=== PATIENT | male | born 1965 | race Asian ===

== ENCOUNTER 2023-07-12 21:32 | Outpatient (CLI) | payer SELFPAY | END 2023-07-12 21:33 | disposition critical access hospital (66) | LOC: EMS 21:32 | DX: R47.1 Dysarthria and anarthria (principal) | CPT/HCPCS: A0425; A0429 ==

== ENCOUNTER 2023-07-12 21:51 | Emergency (ER) | payer SELFPAY ==
--- NOTE | 2023-07-12 22:07 | ED Physician Documentation ---
PD HPI FOCAL NEURO - Stated complaint Stated Complaint: DIFF SPEAKING - History obtained from History obtained from: Patient, EMS - History of Present Illness Timing - duration: Minutes (30) Timing - details: Abrupt onset, Now resolved Severity of deficit: Severe Numbness: Hand (R hand) Associated symptoms: No: Headache, Nausea / vomiting, Seizure, Syncope, Fall, Head injury, Chest pain, Neck pain, Back pain, Fever Contributing factors: negative: Anticoagulated, Vascular dz, Atrial fibrillation, Prosthetic heart valve Baseline status: positive: A&OX3, ambulatory, indep - Additional information Additional information: Patient is a 57-year-old male who presents to the emergency department with 30 minutes of expressive aphasia today. Symptoms started around 930 tonight. Patient is speaking upon arrival to the emergency department. He just returned from the [facility] yesterday. Speaks Tagalog. His friend accompanied him to the emergency department. His friend states that they were drinking beers and smoking cigarettes in his garage today when he suddenly appeared "out of it" and had difficulty speaking. No seizure-like activity. No shaking. Nothing made it better or worse. Symptoms seem to have resolved now. Patient states that he takes no medications and has no medical history. Review of Systems Constitutional: denies: Fever Ears: denies: Ear pain Nose: denies: Rhinorrhea / runny nose, Congestion Throat: denies: Sore throat Cardiac: denies: Chest pain / pressure Respiratory: denies: Cough GI: denies: Nausea, Vomiting, Diarrhea : denies: Dysuria Skin: denies: Rash Musculoskeletal: denies: Neck pain, Back pain Neurologic: denies: Headache PD PAST MEDICAL HISTORY - Past Medical History Past Medical History: No - Past Surgical History Past Surgical History: No - Allergies Allergies/Adverse Reactions: Allergies Allergy/AdvReac Type Severity Reaction Status Date / Time No Known Drug Allergies Allergy Verified 07/12/23 22:03 - Living Situation Living Arrangement: reports: At home - Social History Does the pt smoke?: Yes Smoking Status: Current every day smoker Does the pt drink ETOH?: Yes ETOH Use: Beer Does the pt have substance abuse?: No - Family History Family history: reports: Non contributory PD ED PE NORMAL - Vitals Vital signs reviewed: Yes - General General: Alert and oriented X 3, No acute distress - HEENT HEENT: Atraumatic, PERRL, EOMI, Ears normal, Moist mucous membranes - Neck Neck: Supple, no meningeal sign - Cardiac Cardiac: RRR, Strong equal pulses - Respiratory Respiratory: No respiratory distress, Clear bilaterally - Abdomen Abdomen: Soft, Non tender, Non distended - Derm Derm: Warm and dry - Extremities Extremities: No edema, No calf tenderness / cord - Neuro Neuro: Alert and oriented X 3, pattern molder 2-12 intact, No motor deficit, No sensory deficit, Normal speech Eye Opening: Spontaneous Motor: Obeys Commands Verbal: Oriented GCS Score: 15 - Psych Psych: Normal mood, Normal affect NIHSS - Time Time: 22:06 - Level of Consciousness Level of consciousness: (0) Alert, Keenly responsive LOC Questions: (0) Answers both Q's correct LOC Commands: (0) Performs both correctly - Gaze Best Gaze: (0) Normal - Visual Visual: (0) No loss - Facial Palsy Facial Palsy: (0) Normal, symmetrical movement - Motor Arms (both separate) Motor Arm (right): (0) No drift Motor Arm (left): (0) No drift - Motor Legs (both separate) Motor Leg (right): (0) No drift Motor Leg (left): (0) No drift - Limb Ataxia Limb Ataxia: (0) Absent - Sensory Sensory: (0) Normal - Best Language Best Language: (0) No aphasia - Dysarthria Dysarthria: (0) Normal - Extinction and Inattention (formally neg Extinction and inattention: (0) No abnormality - Total Score/Results Total Score/Result: 0 Results - Vitals Vitals: Vital Signs - 24 hr 07/12/23 07/12/23 22:04 22:06 Temperature 36.5 C 36.5 C Heart Rate 83 83 Respiratory 16 16 Rate Blood Pressure 138/72 H 138/72 H O2 Saturation 97 97 Oxygen O2 Source Room air - Labs Labs: Laboratory Tests 07/12/23 07/12/23 07/12/23 22:14 22:14 22:14 WBC 8.3 RBC 4.59 L Hgb 14.5 Hct 43.9 MCV 95.6 H MCH 31.6 H MCHC 33.0 RDW 14.2 Plt Count 327 MPV 9.9 Neut # (Auto) 4.8 Lymph # (Auto) 2.7 [place] # (Auto) 0.4 Eos # (Auto) 0.3 Baso # (Auto) 0.1 Absolute Nucleated RBC 0.00 Nucleated RBC % 0.0 PT 11.3 INR 1.0 APTT 29.7 Sodium 140 Potassium 3.8 Chloride 106 Carbon Dioxide 29 Anion Gap 5.0 L BUN 15 Creatinine 0.9 Estimated GFR (MDRD) 87 L Glucose 120 H Calcium 9.4 Total Bilirubin 0.3 AST 18 ALT 12 Alkaline Phosphatase 80 Total Protein 7.8 Albumin 4.6 Globulin 3.2 Albumin/Globulin Ratio 1.4 Lipase 44 Ethyl Alcohol < 10.0 - Rads (name of study) head ct Relevant Findings:: Final report received, See rad report cta head/neck Relevant Findings:: Final report received, See rad report PD Medical Decision Making - ED course Complexity details: reviewed results, re-evaluated patient, considered differential, d/w patient ED course: Patient with what appears to likely be a TA IA. Sent for head CT and CT ang iogram of the head and neck. Patient is signed out to Dr. Harp, please see her note for further care of this patient. Patient was activated as a stroke upon arrival to the emergency department. EMS did not activate. There was difficulty obtaining IV access, therefore I did place an ultrasound-guided IV in his right AC.
[2023-07-12 22:20] LABS: BASOPHILS # (AUTO) 0.1 10^3/uL (0.0-0.1); BASOPHILS % (AUTO) 1.1 %; EOSINOPHILS # (AUTO) 0.3 10^3/uL (0.0-0.7); EOSINOPHILS % (AUTO) 3.4 %; HCT - HEMATOCRIT 43.9 % (42.0-52.0); HGB - HEMOGLOBIN 14.5 g/dL (14.0-18.0); LYMPHOCYTES # (AUTO) 2.7 10^3/uL (1.5-3.5); LYMPHOCYTES % (AUTO) 33.1 %; MEAN CORPUSCULAR HEMOGLOBIN 31.6 pg (27.0-31.0); MEAN CORPUSCULAR VOLUME 95.6 fL (80.0-94.0); MEAN PLATELET VOLUME 9.9 fL (7.4-11.4); MONOCYTES # (AUTO) 0.4 10^3/uL (0.0-1.0); MONOCYTES % (AUTO) 4.5 %; NEUTROPHILS # (AUTO) 4.8 10^3/uL (1.5-6.6); NEUTROPHILS % (AUTO) 57.5 %; PLT - PLATELET COUNT 327 10^3/uL (130-450); RED BLOOD COUNT 4.59 10^6/uL (4.70-6.10); RED CELL DISTRIBUTION WIDTH 14.2 % (12.0-15.0); WHITE BLOOD COUNT 8.3 x10^3/uL (4.8-10.8)
[2023-07-12 22:30] LABS: PARTIAL THROMBOPLASTIN TIME 29.7 secs (24.9-33.3)
[2023-07-12 22:34] LABS: PT - PROTHROMBIN TIME 11.3 secs (9.9-12.6)
[2023-07-12 22:47] LABS: ALBUMIN 4.6 g/dL (3.2-5.5); ALBUMIN/GLOBULIN RATIO 1.4 (1.0-2.2); ALKALINE PHOSPHATASE 80 IU/L (42-121); ALT ALANINE AMINOTRANSFERASE 12 IU/L (10-60); AST ASPARTATE AMINOTRANSFERASE 18 IU/L (10-42); BILIRUBIN,TOTAL 0.3 mg/dL (0.2-1.0); BUN - BLOOD UREA NITROGEN 15 mg/dL (6-20); CALCIUM 9.4 mg/dL (8.5-10.3); CARBON DIOXIDE - CO2 29 mmol/L (21-32); CHLORIDE 106 mmol/L (101-111); CREATININE 0.9 mg/dL (0.6-1.3); ETOH - ETHANOL < 10.0 mg/dL; GFR - MDRD 87 (>89); GLUCOSE 120 mg/dL (74-104); LIPASE 44 U/L (11-82); POTASSIUM 3.8 mmol/L (3.5-4.5); SODIUM 140 mmol/L (135-145); TOTAL PROTEIN 7.8 g/dL (6.4-8.9)
[2023-07-12] MEDS ORDERED: iohexoL-300 100 ML VIAL IVP ONE (23:37)
--- NOTE | 2023-07-12 23:56 | CT Report ---
PROCEDURE: CT Angio Head/Neck INDICATIONS: expressive aphasia TECHNIQUE: Axial 1 mm thin sections were obtained during arterial phase of contrast enhancement with subsequent coronal and sagittal reformatted imaging from the thoracic inlet to the skull vertex. COMPARISON: Noncontrast head CT same day. FINDINGS: The aortic arch and brachiocephalic vessels show no evidence of dissection or aneurysm. Arterial enha ncement extending through the common carotid arteries is symmetric and at the carotid bifurcation no appreciable stenosis is seen. Contrast enhancement extends cephalad into the skull base with symmetri c enhancement of the anterior cerebral arteries, middle cerebral arteries and the posterior circulati on. Vertebral basilar arterial enhancement also is normal and symmetric. There is no evidence of intr acranial embolic disease, aneurysm or appreciable stenosis. Through the brain parenchyma no area of ischemic injury is found nor is there evidence of intracrania l hemorrhage or mass. IMPRESSION: Normal examination, source of expressive aphasia is not identified. Reviewed by: Matthew Gray MD on 07/12/2023 11:54 PM PDT Approved by: Matthew Gray MD on 07/12/2023 11:54 PM PDT Station ID: [id number]
--- NOTE | 2023-07-12 23:58 | CT Report ---
PROCEDURE: Head W/O Stroke Protocol INDICATIONS: expressive aphasia TECHNIQUE: Noncontrast 4.5 mm thick angled axial sections acquired from the foramen magnum to the vertex, with c oronal reformats. For radiation dose reduction, the following was used: automated exposure control, adjustment of mA and/or kV according to patient size. COMPARISON: None. FINDINGS: Image quality: Excellent. CSF spaces: Basal cisterns are patent. No extra-axial fluid collections. Ventricles are normal in size and shape. Brain: No midline shift. No intracranial masses or hemorrhage. [place]-white matter interface is norm al. Skull and face: Calvarium and visualized facial bones are intact, without suspicious lesions. Sinuses: Visualized sinuses and mastoids are clear except for minimal mucosal thickening that appear s chronic, involving the inferior aspect of the left maxillary sinus. IMPRESSION: Normal examination, etiology of expressive aphasia is not seen. Minimal mucosal thickening incidentally noted within the left maxillary sinus inferiorly, without air -fluid level. This study fulfills neurological imaging criteria for inclusion or exclusion of acute stroke therapie s based on available published neurological imaging guidelines. Reviewed by: Matthew Gray MD on 07/12/2023 11:56 PM PDT Approved by: Matthew Gray MD on 07/12/2023 11:56 PM PDT Station ID: [id number]
--- NOTE | 2023-07-13 00:13 | ED Physician Documentation ---
ED Addendum - Addendum Addendum: 07/13/23 00:[address] imaging reviewed. Patient is back to normal, confirmed by friend at bedside who speaks Tagalog and Spanish. NIH 0, no deficits noted on repeat physical exam. Possible TIA. Will discharge on aspirin and Plavix. Emphasis on PCP follow-up advised with patient via electroneurodiagnostic technician service at bedside.
[2023-07-13 00:24] VITALS: BP 128/72; O2SAT 98
== END 2023-07-13 00:20 | disposition home or self-care (01) ==
LOC: ED 21:51
DX: R47.01 Aphasia (principal); F17.200 Nicotine dependence, unspecified, uncomplicated
CPT/HCPCS: 36415; 70450; 70496; 70498; 80053; 80320; 83690; 85025; 85610; 85730; 93005; 99284; Q9967